=== PATIENT | female | born 1975 | race Hispanic/Latino ===

== ENCOUNTER 2018-06-14 11:24 | Emergency (ER) | payer BC ==
[~2018-06-14] VITALS: Ht 157.5 cm; Wt 70.3 kg
[~2018-06-14 11:24] MED LIST: NORCO 5-325 TA1 EACH PO; TAMIFLU75 MG PO; TRAMADOL HCL-A1 EAC1 PO; ZYRTEC
[2018-06-14] MEDS ORDERED: ONDANSETRON HCL INJ 2 MG/ML VIAL IV STA (12:34)
[2018-06-14] MEDS ORDERED: MORPHINE SULFATE 2 MG/ML SYR IV STA (12:34)
[2018-06-14] MEDS ORDERED: SODIUM CHLORIDE 0.9% 1000ML 1,000 ML IV SCH (12:45)
[2018-06-14 13:12] LABS: BASOPHILS # (AUTO) 0.1 (0.0-0.1); BASOPHILS % 1.1 % (0.0-1.0); EOSINOPHILS # (AUTO) 0.3 (0.0-0.4); EOSINOPHILS % 4.7 % (0.0-6.0); HEMATOCRIT 40.9 % (34.2-44.1); HEMOGLOBIN 14.3 g/dL (12.0-16.0); LYMPHOCYTES # (AUTO) 1.5 (1.0-3.2); LYMPHOCYTES % 23.5 % (18.0-39.1); MEAN CORPUSCULAR HEMOGLOBIN 33.9 pg (28-32); MEAN CORPUSCULAR VOLUME 96.9 fL (81-99); MONOCYTES # (AUTO) 0.4 (0.2-0.8); MONOCYTES % 5.6 % (4.4-11.3); NEUTROPHILS # (AUTO) 4.2 (2.1-6.9); NEUTROPHILS % 64.5 % (38.7-80.0); PLATELET COUNT 351 x10e3/uL (140-360); RED BLOOD COUNT 4.22 x10e6/uL (3.6-5.1); RED CELL DISTRIBUTION WIDTH 12.4 % (11.7-14.4)
[2018-06-14 13:16] LABS: BILIRUBIN,URINE NEGATIVE (NEGATIVE); CLARITY,URINE SL CLOUDY (CLEAR); COLOR,URINE YELLOW (YELLOW); KETONES,URINE NEGATIVE (NEGATIVE); LEUKOCYTE ESTERASE ,URINE 1+ (NEGATIVE); NITRITE,URINE NEGATIVE (NEGATIVE); PROTEIN,URINE DIPSTICK NEGATIVE (NEGATIVE); URINE UROBILINOGEN 0.2 mg/dL (0.2 - 1)
[2018-06-14 13:30] LABS: BACTERIA,URINE MODERATE /HPF; EPITHELIAL CELLS,URINE MODERATE /LPF; TRANSITIONAL EPI CELLS,URINE FEW
[2018-06-14 13:31] LABS: ALANINE AMINOTRANSFERASE 20 IU/L (0-55); ALBUMIN 4.5 g/dL (3.5-5.0); ALBUMIN/GLOBULIN RATIO 1.2 (0.8-2.0); ALKALINE PHOSPHATASE 67 IU/L (40-150); ANION GAP 17.1 mmol/L (8-16); BLOOD UREA NITROGEN 10 mg/dL (7-26); BUN/CREATININE RATIO 13 (6-25); CALCIUM 8.9 mg/dL (8.4-10.2); CARBON DIOXIDE 22 mmol/L (22-29); CHLORIDE 104 mmol/L (98-107); CREATININE, SERUM 0.78 mg/dL (0.57-1.11); EST GLOMERULAR FILTRATION RATE > 60 ML/MIN (60-); GLUCOSE 91 mg/dL (74-118); POTASSIUM 4.1 mmol/L (3.5-5.1); SODIUM 139 mmol/L (136-145)
--- NOTE | 2018-06-14 14:37 | Diagnostic Imaging Report ---
EXAMINATION: CT of the abdomen and pelvis with contrast. TECHNIQUE: Spiral CT images of the abdomen and pelvis were performed from the lung bases to the lesser trochanters after the intravenous administration of 100 cc of Isovue-370. Coronal and sagittal reformatted images were obtained. COMPARISON: None. CLINICAL HISTORY:Right lower quadrant pain, concern for appendicitis DISCUSSION: ABDOMEN/PELVIS: LOWER THORAX:Unremarkable. HEPATOBILIARY: No focal hepatic lesions. Trace intrahepatic biliary ductal dilatation status post cholecystectomy. The gallbladder has been removed. SPLEEN: No splenomegaly. PANCREAS: No focal masses or ductal dilatation. ADRENALS: No adrenal nodules. KIDNEYS/URETERS: No hydronephrosis, stones, or solid mass lesions. PELVIC ORGANS/BLADDER: Urinary bladder is unremarkable. 3.5 cm hypoattenuating mass in the posterior uterine body likely represents a fibroid. Bilateral tubal ligation clips. No adnexal mass. PERITONEUM/RETROPERITONEUM: No ascites. No pneumoperitoneum. LYMPH NODES: No pelvic sidewall, retroperitoneal, or mesenteric lymphadenopathy. VESSELS: The abdominal aorta and major branch vessels are patent without aneurysmal dilatation. The portal vein, splenic vein, and central superior mesenteric vein are patent. GI TRACT: The large bowel shows no evidence of distention or wall thickening. There are diverticula scattered along the sigmoid colon without wall thickening or adjacent inflammatory change. The cecum and ascending colon are collapsed and poorly evaluated. The appendix is normal. No small bowel dilatation to suggest obstruction. Metallic clip deep to the left rectus abdominis has presumably migrated from the cholecystectomy bed. BONES AND SOFT TISSUE: No osseous destructive lesions. Bone island in the left femoral head. Osteitis condensans ilii incidentally noted. No focal soft tissue abnormalities. IMPRESSION: No acute intra-abdominal or pelvic CT abnormalities. Normal appendix. Sigmoid diverticulosis without findings of diverticulitis. Fibroid uterus. Signed by: Dr. Jose Shields M.D. on 06/14/2018 2:34 PM
[2018-06-14] MEDS ORDERED: SODIUM CHLORIDE 0.9% 1000ML 1,000 ML ONE (20:15)
[2018-06-14] MEDS ORDERED: IOPAMIDOL 370 MG/ML 200 ML INFUS..BTL INJ ONE (22:41)
[2018-06-14] MEDS ORDERED: SODIUM CHLORIDE 0.9% 50ML 50 ML ONE (22:41)
== END 2018-06-14 15:24 | disposition home or self-care (01) ==
LOC: ER 11:24
DX: R10.31 Right lower quadrant pain (principal); N30.91 Cystitis, unspecified with hematuria
CPT/HCPCS: 36415; 74177; 80053; 81001; 84702; 85025; 99284; J2270; J2405; J7030; Q9967

== ENCOUNTER 2024-08-26 12:37 | Emergency (ER) | payer OTHER ==
[~2024-08-26] VITALS: Ht 157.5 cm; Wt 79.4 kg
[2024-08-26 12:59] VITALS: PULSE 94; RESP 18; TEMP 98.1; O2SAT 98
[2024-08-26] MEDS ORDERED: METHOCARBAMOL500 MG PO (13:27)
[2024-08-26] MEDS ORDERED: MELOXICAM15 MG PO (13:27)
[2024-08-26] MEDS: KETOROLAC TROMETHAMINE 30 MG/ML VIAL IM STA (13:45)
[2024-08-26] MEDS: METHOCARBAMOL 500 MG TAB PO ONE (13:45)
== END 2024-08-26 14:00 | disposition home or self-care (01) ==
LOC: FSED 12:42
DX: M54.2 Cervicalgia (principal); R51.9 Headache, unspecified; V43.62XA Car passenger injured in collision with other type car in traffic accident, initial encounter; Y92.488 Other paved roadways as the place of occurrence of the external cause
CPT/HCPCS: 99282; J1885

== ENCOUNTER 2025-05-31 09:31 | Emergency (ER) | payer OTHER ==
[~2025-05-31] VITALS: Ht 157.5 cm; Wt 78.6 kg
[~2025-05-31 09:31] MED LIST changes: +MELOXICAM15 MG PO; +METHOCARBAMOL500 MG PO
[2025-05-31 09:57] VITALS: TEMP 98.3
[2025-05-31] MEDS ORDERED: PREMARIN1.25 MG PO (10:04)
[2025-05-31] MEDS ORDERED: PROVERA5 MG PO (10:04)
[2025-05-31] MEDS: DIPHENHYDRAMINE HCL INJ 50 MG/ML VIAL IV ONE (10:50)
[2025-05-31] MEDS: METOCLOPRAMIDE HCL 10 MG/2ML VIAL IV ONE (10:50)
[2025-05-31] MEDS: KETOROLAC TROMETHAMINE 30 MG/ML VIAL IV STA (10:50)
[2025-05-31] MEDS: SODIUM CHLORIDE 0.9% 1000ML 1,000 ML IV SCH (11:25)
[2025-05-31 11:34] VITALS: PULSE 69; RESP 16; O2SAT 98
[2025-05-31] MEDS ORDERED: MECLIZINE HCL12.5 MG PO (11:35)
[2025-05-31] MEDS ORDERED: MECLIZINE HCL25 MG PO (11:37)
== END 2025-05-31 11:46 | disposition home or self-care (01) ==
LOC: FSED 09:41
DX: R42 Dizziness and giddiness (principal); I10 Essential (primary) hypertension; R51.9 Headache, unspecified
CPT/HCPCS: 80048; 81003; 84484; 85025; 93005; 96374; 96375; 99284; J1200; J1885; J2765; J7030